=== PATIENT | female | born 1980 | race Hispanic/Latino ===

== ENCOUNTER 2021-04-30 02:17 | Observation (INO) | payer SELFPAY ==
[~2021-04-30] VITALS: Ht 147.3 cm; Wt 68.0 kg
--- NOTE | 2021-04-30 02:19 | NUR ---
AMBULATED TO ROOM WITH STEADY GAIT.
--- NOTE | 2021-04-30 02:45 | NUR ---
Reassessment of patient completed. No distress noted.
[2021-04-30 02:49] LABS: IMMATURE GRANULOCYTES 0.2 % (0.0-5.0); MEAN CORPUSCULAR HGB 24.4 pG CALC (26.0-32.0); MEAN CORPUSCULAR HGB CONC 32.1 g/dL CAL (32.0-36.0); NEUT# 10.38 thou/uL (2.00-7.15); RED BLOOD COUNT 5.41 mill/uL (4.20-5.60); RED CELL DISTRI WIDTH 20.3 % (11.5-15.5)
[2021-04-30 02:52] LABS: HEMATOCRIT 41.1 % (37.0-47.0); HEMOGLOBIN 13.2 g/dl (12.0-16.0)
[2021-04-30 02:58] LABS: AMYLASE 150 u/l (30-110); ANION GAP 16 (6-22 (CALC)); BUN 15 mg/dL (7-17); BUN/CREATININE RATIO 20 (12-20 (CALC)); CARBON DIOXIDE 24 mmol/l (22-30); CHLORIDE 102 mmol/l (95-108); CREATININE 0.8 mg/dL (0.5-1.0); GFR > 60 ML/MIN (>=60 (CALC)); GFR FOR AFR.AMER. > 60 ML/MIN (>=60 (CALC)); LIPASE 124 u/l (23-300); POTASSIUM 3.5 mmol/l (3.5-5.1); SGOT/AST 32 u/l (14-36); SODIUM 139 mmol/l (137-146)
--- NOTE | 2021-04-30 02:58 | NUR ---
PT CURRENTLY SLEEPING, N/V HAS SUBSIDED.
[2021-04-30 03:00] LABS: ALBUMIN 4.6 g/dL (3.2-5.0); ALKALINE PHOSPHATASE 46 u/l (38-126); BILIRUBIN, TOTAL 0.3 mg/dL (0.0-1.4); TOTAL PROTEIN 8.4 g/dL (6.3-8.2)
[2021-04-30 03:53] LABS: URINE BILIRUBIN - DIPSTICK NEGATIVE (NEGATIVE); URINE BLOOD DIPSTICK NEGATIVE (NEGATIVE); URINE COLOR YELLOW; URINE GLUCOSE - DIPSTICK NEGATIVE (NEGATIVE); URINE KETONE NEGATIVE (NEGATIVE); URINE LEUK ESTERASE NEGATIVE (NEGATIVE); URINE PH 7.5 (4.5-8.0); URINE PROTEIN - DIPSTICK NEGATIVE (NEG-TRACE); URINE SPECIFIC GRAVITY 1.015; URINE UROBILINOGEN - DIPSTICK 0.2 E.U./dL (0.2)
[2021-04-30 03:55] LABS: URINE NITRITE - DIPSTICK NEGATIVE (Negative)
--- NOTE | 2021-04-30 04:08 | NUR ---
Reassessment of patient completed. No distress noted.
--- NOTE | 2021-04-30 04:50 | NUR ---
Admission Note Report Given to: JORDAN LYN Transported by: X Wheelchair Stretcher Transported with: X Nurse Transporter X Patent IV O2 Frog Farmer Location: ICU X [facility]
[2021-04-30 05:10] VITALS: BP 114/75
--- NOTE | 2021-04-30 06:17 | NUR ---
PATIENT ADMITTED FROM ER VIA WHEELCHAIR WITH ER STAFF IN ATTENDANCE. PATIENT ABLE TO TRANSFER TO BED. PATIENT IS AWAKE ALERT AND ORIENTEDX3. MOZAMBICAN SPEAKING ONLY. PATIENT IS NPO. IV SITE TO RAC INTACT AND HEALTHY WITH GOOD BLOOD RETURN. IVF NS HUNG AND INFUSING AT 125CC/HR. DENIES ANY ALLERGIES. THIAGO FROM LAB HERE AND ABLE TO INTERPRET FOR ADMISSION. LAST BM WAS YESTERDAY 04/29. STATES THAT IT WAS NORMAL. STATES THAT SHE IS HAVING SOME BURNING UPON URINATION. U/A WAS SENT. LUNGS ARE CLEAR. ABD IS SOFT WITH BS+. NO PERIPHERAL EDEMA NOTED. PULSES ARE PALPABLE. ORIENTED TO ROOM AND SURROUNDINGS. INSTRUCTED ON USE OF NURSE CALL LIGHT SYSTEM, TV REMOTE AND TELEPHONE. SAFETY PRECAUTIONS REINFORCED. CALL LIGHT IN REACH. WILL CONT TO MONITOR.
[2021-04-30 08:00] VITALS: BP 110/73
--- NOTE | 2021-04-30 08:00 | NUR ---
PT WAS FOUND SLEEPING IN BED;PT AROUSED TO VERBAL STIMULI;CARDIOVASCULAR SURGICAL TECH WAS USED DURING VS AND ASSESSMENT;PT IS A&O X3;PT IS REPORTING ABDOMINAL PAIN OF 2/10 ;PT DECLINES PAIN MEDICATION NEED AT THIS TIME;HEART SOUNDS ARE REGULAR IN RATE AND RHYTHM;LUNG SOUNDS ARE CLEAR;RESPIRATIONS ARE EVEN AND UNLABORED ON RA;DARLENE MONTGOMERY ON PT;PT IS NPO AT THIS TIME;#20G IV IN RAC IS RUNNING NS@125 ML/HR AT THIS TIME;IV SITE APPEARS FREE OF COMPLICATIONS;SAFETY PRECAUTIONS IN PLACE;CALL LIGHT WITHIN REACH;BED IN LOWEST POSITION;PT ENCOURAGED TO CALL WITH ANY NEEDS OR CONCERNS;WILL CONTINUE TO MONITOR.
--- NOTE | 2021-04-30 12:00 | NUR ---
PT WAS FOUND RESTING IN BED;ZOSYN IS BEING HUNG TO INFUSE;IV SITE IS PATENT AND APPEARS FREE OF COMPLICATIONS AT THIS TIME;PT IS REPORTING NO PAIN;SAFETY PRECAUTIONS IN PLACE;CALL LIGHT WITHIN REACH;WILL CONTINUE TO MONITOR
[2021-04-30 14:56] VITALS: BP 116/77
--- NOTE | 2021-04-30 16:00 | NUR ---
PT WAS FOUND SLEEPING IN BED;PT ROUSED TO VERBAL STIMULI;PT HAS NO REPORTS OF PAIN AT THIS TIME;#20G IV IN RAC IS RUNNING NS@125ML/HR;IV SITE APPEARS FREE OF COMPLICATIONS AT THIS TIME;SAFETY PRECAUTIONS IN PLACE;CALL LIGHT WITHIN REACH;BED IN LOWEST POSITION;WILL CONTINUE TO MONITOR.
[2021-04-30 19:51] VITALS: BP 133/71
--- NOTE | 2021-04-30 20:04 | NUR ---
PATIENT RESTING IN BED AT THIS TIME-AWAKE ALERT AND ORIENTEDX3. PATIENT IS SIN[place] SPEAKING. THIAGO FROM LAB IS HERE TO INTERPRET. PATIENT DENIES ANY PAIN AT THIS TIME. PATIENT STATES THAT HER LAST BM WAS YESTERDAY AND IT WAS NORMAL. ABD IS SOFT WITH ACTIVE BS. PATIENT WAS ABLE TO TOLERATE LIQUID DIET FOR DINNER-DENIES ANY NAUSEA AT THIS TIME. INSTRUCTED NPO AFTER MN TONIGHT FOR OR IN AM. INSTRUCTED THROUGH INTERPRETOR PROCEDURE FOR TOMMORROW BY DR. REILLY. VERBALIZES UNDERSTANDING. PATIENT INSTRUCTED REGUARDING TAKING SHOWER WITH ANTIBACTERIAL SCRUB TONIGHT. IVF NS PATENT AND INFUSING VIA RAC SITE AT 125CC/HR. SITE IS HEALTHY WITH GOOD BLOOD RETURN. LUNGS ARE CLEAR. SAFETY PRECAUTIONS REINFORCED. CALL LIGHT IN REACH. WILL CONT TO MONITOR.
[2021-05-01] VITALS (10 sets, daily range): BP systolic 114–127; BP diastolic 73–83
--- NOTE | 2021-05-01 | NUR ---
PATIENT RESTING IN BED WITH EYES CLOSED. RESPS ARE EVEN AND UNLABORED. IVF NS PATENT AND INFUSING AT 125CC/HR. SITE TO [facility] REMAINS HEALTHY. ZOSYN HUNG ORDERED. NPO FOR OR IN AM. CALL LIGHT IN REACH. WILL CONT TO MONITOR.
--- NOTE | 2021-05-01 03:20 | NUR ---
PATIENT RESTING IN BED AT THIS TIME WITH EYES CLOSED. RESPS ARE EVEN AND UNLABORED. IVF PATENT AND INFUSING VIA RAC SITE AT 125CC/HR. NPO FOR OR THIS MORNING. CALL LIGHT IN REACH. WILL CONT TO MONITOR.
--- NOTE | 2021-05-01 06:22 | NUR ---
UZBEK CONSENT WAS SIGNED THIS MORNING FOR NICOLE CARCAMO BY DR. GOMES. PATIENT WAS EDUCATED REGUARDING CONSENT BY THIAGO ROLLINS FROM LAB. PATIENT VERBALIZES UNDERSTANDING OF THE CONSENT. RESTING IN BED-WILL CONT TO MONITOR.
--- NOTE | 2021-05-01 07:00 | NUR ---
SHIFT CHANGE REPORT, PT AWAKE ALERT AND ORIENTED AMBULATING IN ROOM TO BR, DENIES PAIN, IVF INFUSING, CALL STOUT IN REACH AND BED LOCKED IN LOWEST POSITION.
--- NOTE | 2021-05-01 12:16 | NUR ---
OR STAFF HERE AT THIS TIME RECEIVING PT IN BED AND TRANSFERRING HER OFF UNIT TO PROCEDURE.
--- NOTE | 2021-05-01 15:52 | NUR ---
PT JUST RETURNED TO UNIT TRANSPORTED VIA STRETCHER BY OR STAFF, GROGGY BUT ORIENTED, TRANSFERRED TO BED, BEDSIDE REPORT GIVEN BY KEVIN WHO REPORTED EBL = 50, INTAKE = 1000, OUTPUT FROM DEWAYNE DRAIN = 20, NO URINARY OUTPUT. PUNCTURE X 3 TO ABD WELL APPROXIMATED WITH DERMABOND AND DRESSING CDI OVER DEWAYNE SITE. JUST VOMITTED APPROX. 50CC GREEN LIQUID, SCD PLACED, VITAL SIGNS BEING MEASURED CALL STOUT IN REACH, WILL CONTINUE TO MONITOR.
--- NOTE | 2021-05-01 19:34 | NUR ---
PATIENT RESTING IN BED AT THIS TIME TAKING PO FLUIDS. AWAKE ALERT AND ORIENTEDX3. PATIENT STATES ONLY A LITTLE PAIN AT THIS TIME. DENIES ANY NAUSEA AT THIS TIME. ABD IS SOFT WITH DEWAYNE DRAIN TO RIGHT ABD. DRESSING TO DEWAYNE SITE IS CDI. HYPOACTIVE BS PRESENT. DERMABOND INTACT WITH NO DRAINAGE, SWELLING OR REDNESS NOTED. IVF NS PATENT AND INFUSING VIA RAC SITE AT 125CC/HR. SITE REMAINS HEALTHY. SCD'S IN PLACE. NO PERIPHERAL EDEMA NOTED. PULSE ARE PALPABLE. SAFETY PRECAUTIONS REINFORCED. CALL LIGHT IN REACH. WILL CONT TO MONITOR.
--- NOTE | 2021-05-01 22:14 | NUR ---
PATIENT RESTING IN BED AT THIS TIME-AWAKE ALERT AND ORIENTED. DEWAYNE EMPTIED FOR 20CC OF BLOODY DRAINAGE. IVF NS PATENT AND INFUSING VIA RAC AT 125CC/HR. PATIENT MEDICATED FOR POST-OP PAIN WITH MORPHINE 4MG IVP ORDERED. ASSISTED OOB TO BSC TO VOID 900CC OF YELLOW URINE. ASSISTED BACK TO BED. TAKING PO FLUIDS. CALL LIGHT IN REACH. WILL CONT TO MONITOR.
--- NOTE | 2021-05-02 01:24 | NUR ---
RESTING IN BED WITH EYES CLOSED. RESPS ARE EVEN AND UNLABORED. IVF NS PATENT AND INFUSING VIA RAC SITE AT 125CC/HR. DEWAYNE DRAIN PATENT AND DRAINING SMALL AMT OF BLOODY DRAINAGE. CALL LIGHT IN REACH. WILL CONT TO MONITOR.
[2021-05-02 04:00] VITALS: BP 131/86
--- NOTE | 2021-05-02 04:19 | NUR ---
PATIENT RESTING IN BED-EYES ARE CLOSED. RESPS ARE EVEN AND UNLABORED. IVF PATENT AND INFUSING VIA RAC SITE AT 125CC/HR. DEWAYNE DRAIN TO RIGHT ABD INTACT AND DRAINING BLOODY FLUID. DRESSING TO DEWAYNE SITE IS CDI.NO DRAINAGE NOTED FROM DERMAB OND SITES. MEDICATED WITH MORPHINE FOR POST-OP PAIN WITH GOOD RELIEF. SCD'S IN PLACE. CALL LIGHT IN REACH. WILL CONT TO MONITOR.
[2021-05-02 06:43] LABS: HEMATOCRIT 36.7 % (37.0-47.0); HEMOGLOBIN 11.6 g/dl (12.0-16.0); IMMATURE GRANULOCYTES 0.3 % (0.0-5.0); MEAN CELL VOLUME 77.1 fL CALC (80.0-100.0); MEAN CORPUSCULAR HGB 24.4 pG CALC (26.0-32.0); MEAN CORPUSCULAR HGB CONC 31.6 g/dL CAL (32.0-36.0); NEUT# 5.7 thou/uL (2.00-7.15); RED BLOOD COUNT 4.76 mill/uL (4.20-5.60); RED CELL DISTRI WIDTH 20.1 % (11.5-15.5)
[2021-05-02 07:03] LABS: ALKALINE PHOSPHATASE 26 u/l (38-126); ANION GAP 10 (6-22 (CALC)); BUN 4 mg/dL (7-17); BUN/CREATININE RATIO 6 (12-20 (CALC)); CARBON DIOXIDE 23 mmol/l (22-30); CHLORIDE 106 mmol/l (95-108); CREATININE 0.6 mg/dL (0.5-1.0); GFR > 60 ML/MIN (>=60 (CALC)); GFR FOR AFR.AMER. > 60 ML/MIN (>=60 (CALC)); POTASSIUM 3.4 mmol/l (3.5-5.1); SODIUM 136 mmol/l (137-146)
[2021-05-02 07:07] LABS: ALBUMIN 3.1 g/dL (3.2-5.0); BILIRUBIN, TOTAL 0.8 mg/dL (0.0-1.4); SGOT/AST 172 u/l (14-36); TOTAL PROTEIN 5.9 g/dL (6.3-8.2)
[2021-05-02 08:30] VITALS: BP 130/79
--- NOTE | 2021-05-02 08:30 | NUR ---
PT LAYING IN BED. A&O X4. NO DISTRESS NOTED. PT RATES CURRENT PAIN 4/10, DESCRIBED "SORE", PT DENIES THE NEED FOR PAIN MEDICATION AT THIS TIME. CLEAR BREATH SOUNDS HEARD UPON AUSCULTATION. ACTIVE BOWEL SOUNDS X4 QUADRANTS. PT TOLERATING FOOD WELL, DENIES ANY N&V AT THIS TIME. DEWAYNE DRAIN IN PLACE TO RUQ. 20CC OF SANGUINEOUS DRAINED FROM DEWAYNE DRAIN. DRESSING SURROUNDING DEWAYNE DRAIN CDI. X3 LAPAROSCOPIC INCISIONS CDI. PT ABLE TO AMBULATE TO AND FROM THE BATHROOM WITH NO DIFFICULTY. IV HEALTHY AND PATENT WITH IVF INFUSING PER MAR ORDERS. SCDS IN PLACE. NO OTHER NEEDS AT THIS TIME. ASSESSMENT COMPLETED. DISCUSSED POC. CALL LIGHT WITHIN REACH.
--- NOTE | 2021-05-02 12:23 | NUR ---
DR LORENZ AT BEDSIDE
[2021-05-02] MEDS ORDERED: PERCOCET 5/325M1 TAB PO (12:32)
--- NOTE | 2021-05-02 12:52 | NUR ---
CESAR ABD DEWAYNE DRAIN REMOVED PER DR. LORENZ ORDER. 20 CC DRAINED FROM BULB. GUAZE AND TD APPLIED. PT TOLERATED WELL.
--- NOTE | 2021-05-02 13:37 | NUR ---
IV INTACT UPPON REMOVAL BY Ayala POE RN. PT TOLERATED WELL. NO NEEDS AT THIS TIME. CALL LIGHT LEFT WITHIN REACH.
--- NOTE | 2021-05-02 14:27 | NUR ---
Discharge instructions given. Patient verbalizes understanding of same. Discharged in stable condition via wheelchair to home accompanied by staff and family. Pain medication script given, copy placed on chart. All belongings sent with pt.
--- NOTE | 2021-05-08 15:59 | NUR ---
PER PHYSICIAN, ATTEMPTED TO CALL PATIENT FOR POST OP FOLLOW UP, BUT PHONE NUMBER IN PATIENT CHART IS INCORRECT. HYDROCHL[employer]IC AREA SUPERVISOR OF PHONE STATED HE DID NOT KNOW ANYONE BY MS. VACA. HE ASKED IF WE COULD REMOVE PHONE NUMBER FROM OUR DIRECTORY. NO OTHER NUMBER AVAILABLE IN CHART, EMERGENCY CONTACT IS SAME NUMBER PATIENT'S.
== END 2021-05-02 14:24 | disposition home or self-care (01) | DRG 419 ==
LOC: ED 02:17 → ED-I 04:19 → ED 04:28 → MS2 04:29
PROVIDERS: Family Medicine; ADMIT Surgery; ATTEND Surgery
PROC: 0FT44ZZ Resection of Gallbladder, Percutaneous Endoscopic Approach (ICD-10-PCS; principal; 2021-05-01)
DX: K80.12 Calculus of gallbladder with acute and chronic cholecystitis without obstruction (principal); Z20.822 Contact with and (suspected) exposure to COVID-19
CPT/HCPCS: G0378; J0131; J1610; J2710; Q9967